=== PATIENT | male | born 1960 | race Two or more races ===

== ENCOUNTER 2019-07-02 07:59 | Inpatient (IN) | payer SELFPAY ==
[~2019-07-02] VITALS: Ht 182.9 cm; Wt 115.9 kg
[2019-07-02 10:03] LABS: Basophils # (auto) 0 uL; Basophils % (auto) 0.5 % (0.0-2.0); Eosinophils # (auto) 0 uL; Eosinophils % (auto) 0.2 % (0.0-7.0); Hematocrit 46.8 % (41.0-53.0); Lymphocytes # (auto) 1.1 uL; Mean Corpuscular Hemoglobin 29.1 pg (28.0-32.0); Mean Corpuscular Hgb Conc. 31.9 g/dL (32.0-36.0); Mean Corpuscular Volume 91.1 fL (80.0-100.0); Monocytes # (auto) 0.6 uL; Monocytes % (auto) 6.9 % (0.0-12.0); Neutrophils # (auto) 6.3 uL; Neutrophils % (auto) 78.4 % (37.0-80.0); Nucleated Red Blood Cells % 0.2 %; Platelet Count (auto) 269 10^3/uL (140-450); Red Blood Cells 5.14 10^6/uL (4.5-5.90); Red Cell Distribution Width 17.5 % (11.8-14.3); White Blood Cell 8.1 10^3/uL (4.4-10.8)
[2019-07-02 10:28] LABS: Calcium 8.9 mg/dL (8.5-10.1); Magnesium 2.2 mg/dL (1.6-2.6); Potassium 4.4 mmol/L (3.5-5.1)
[2019-07-02 10:37] LABS: BUN/Creatinine Ratio 21.9; Bilirubin, Total 0.8 mg/dL (0.2-1.0); Total Protein 7.3 g/dL (6.4-8.2)
[2019-07-02] MEDS ORDERED: SODIUM CHLORIDE 0.9% 1,000 ML IV ONE (11:23)
[2019-07-02] MEDS ORDERED: IPRATROPIUM BROM 0.5 MG/2.5ML INH SOL NEB ONE ×2 (11:30→12:45)
[2019-07-02] MEDS ORDERED: VANCOMYCIN 1GM/250ML 250 ML IV ONE (11:30)
[2019-07-02] MEDS ORDERED: ALBUTEROL SULF 2.5 MG/0.5ML(0.5%) NEB SOLN NEB ONE ×2 (11:30→12:45)
[2019-07-02 11:32] LABS: Urine Bacteria FEW /hpf (None Seen); Urine Blood TRACE /uL (Negative); Urine Hyaline Cast MANY /lpf (0 - 2); Urine Mucus FEW (None Seen); Urine Specific Gravity 1.037 (1.001-1.035); Urine WBC 4 /hpf (0 - 3)
[2019-07-02 11:41] LABS: Alcohol, Urine < 3.0 mg/dL (0-5); Amphetamine Screen, Urine POSITIVE (NEGATIVE); Barbiturate Scree,Urine NEGATIVE (NEGATIVE); Benzodiazephine Screen, Urine NEGATIVE (NEGATIVE); Cannabinoid Screen, Urine NEGATIVE (NEGATIVE); Cocaine Screen, Urine NEGATIVE (NEGATIVE); Opiate Scree,Urine NEGATIVE (NEGATIVE); Phencyclidine Screen, Urine NEGATIVE (NEGATIVE)
[2019-07-02] MEDS ORDERED: TEMAZEPAM 15 MG CAP PO PRN (16:15)
[2019-07-02] MEDS ORDERED: levoFLOXacin 500MG 100 ML IV ONE (16:15)
[2019-07-02] MEDS ORDERED: DEXTROSE (50%) 50ML SYRG IV PRN (16:15)
[2019-07-02] MEDS ORDERED: CARVEDILOL 3.125 MG TAB PO ONE (16:15)
[2019-07-02] MEDS ORDERED: LACTULOSE 20Gm/30ML SOLN PO PRN (16:15)
[2019-07-02] MEDS ORDERED: NITROGLYCERIN 0.4 MG SL TAB SL PRN (16:15)
[2019-07-02] MEDS ORDERED: OSELTAMIVIR 75 MG CAP PO ONE (16:15)
[2019-07-02] MEDS ORDERED: MORPHINE SULF INJ 2 MG/ML SYRINGE 1ML IV PRN (16:15)
[2019-07-02] MEDS ORDERED: ENALAPRIL MALEATE 2.5 MG TAB PO ONE (16:15)
[2019-07-02] MEDS ORDERED: PROMETHAZINE HCL 25 MG/ML 1ML IV PRN (16:15)
[2019-07-02] MEDS ORDERED: DOXYCYCLINE 100MG/250ML 250 ML IV SCH (16:15)
[2019-07-02] MEDS: ACCU-CHEK COMFORT CURVE STRIP VI SCH ×2 (18:07→22:56)
[2019-07-02] MEDS: IPRATROPIUM BROM 0.5 MG/2.5ML INH SOL NEB SCH (19:00)
[2019-07-02 19:30] VITALS: BP 127/86
[2019-07-02 20:00] VITALS: BP 110/49
--- NOTE | 2019-07-02 20:30 | NUR ---
Telemetry admit from ER CHARISSTAN admitted to Telemetry unit after SBAR received. Patient oriented to MEERA ALLEN, RN primary RN, unit, room, bed, and unit policies regarding patient care and visiting hours. Patient now on continuous telemetry monitoring, tele box # [id number] and telemetry reading on arrival to unit is [id number]. Patient placed on bedside oxygen, weighed by bedscale and encouraged to call if they need something. All questions and concerns addressed, patient verbalized understanding. Patient on 4L NC, patient complained of 10/10 will administer pain medication PRN.
[2019-07-02] MEDS: MORPHINE SULF INJ 2 MG/ML SYRINGE 1ML IV PRN (21:03)
[2019-07-02 22:00] VITALS: BP 127/69
[2019-07-02] MEDS ORDERED: CARVEDILOL 3.125 MG TAB PO SCH (22:00)
[2019-07-02] MEDS: SODIUM CHLOR 0.9% PF (SALINE LOCK) 10ML VIAL/SYR IV SCH (22:30)
[2019-07-02] MEDS: DOXYCYCLINE 100MG/250ML 250 ML IV SCH (22:55)
[2019-07-02] MEDS: CLINDAMYCIN 600MG IV 50 ML IV SCH (22:55)
[2019-07-02] MEDS: ATORVASTATIN 20 MG TAB PO SCH (22:56)
[2019-07-02] MEDS: traMADol HCL 50 MG TAB PO PRN (22:57)
--- NOTE | 2019-07-02 23:00 | NUR ---
Wound pictures taken and dressing applied.
[2019-07-02] MEDS: OSELTAMIVIR 75 MG CAP PO SCH (23:01)
[2019-07-02] MEDS: FUROSEMIDE 40 MG/4 ML VIAL IV SCH (23:01)
[2019-07-03] VITALS (7 sets, daily range): BP systolic 108–139; BP diastolic 75–104
[2019-07-03] MEDS: IPRATROPIUM BROM 0.5 MG/2.5ML INH SOL NEB SCH ×4 (00:36→19:00)
[2019-07-03] MEDS: ACCU-CHEK COMFORT CURVE STRIP VI SCH ×4 (05:39→21:55)
[2019-07-03] MEDS: CLINDAMYCIN 600MG IV 50 ML IV SCH ×3 (05:39→21:54)
[2019-07-03] MEDS: SODIUM CHLOR 0.9% PF (SALINE LOCK) 10ML VIAL/SYR IV SCH ×3 (06:00→22:50)
[2019-07-03 06:10] LABS: Potassium 4.2 mmol/L (3.5-5.1)
[2019-07-03 06:24] LABS: Albumin 2.5 g/dL (3.4-5.0); BUN/Creatinine Ratio 23.8; Bilirubin, Total 0.8 mg/dL (0.2-1.0); Calcium 8.3 mg/dL (8.5-10.1); Total Protein 6.3 g/dL (6.4-8.2)
--- NOTE | 2019-07-03 08:10 | NUR ---
PATIENT IV OUT. IV INTACT NO DISTRESS NOTED.
[2019-07-03 08:31] LABS: Hepatitis B Surface Antibody Negative
[2019-07-03] MEDS: ADENOSINE 77 MG in GIVE UN-DILUTED 0 ML IV STA (08:53)
[2019-07-03 09:10] LABS: Hepatitis A Total Antibody Negative
[2019-07-03 09:37] LABS: Hepatitis B Core Total AB Negative
[2019-07-03 09:38] LABS: Hepatitis B Surface Antigen Negative (Negative); Hepatitis C Antibody Negative (Negative)
--- NOTE | 2019-07-03 09:45 | NUR ---
PLACED IV X 2 RIGHT WRIST 22 G RIGHT FA 20G PATIENT TOLERATED WELL
[2019-07-03] MEDS: ENOXAPARIN SOD 40 MG/0.4 ML SYRINGE SC SCH (09:49)
[2019-07-03] MEDS: DOXYCYCLINE 100MG/250ML 250 ML IV SCH ×2 (09:50→21:55)
[2019-07-03] MEDS: FUROSEMIDE 40 MG/4 ML VIAL IV SCH ×2 (09:50→21:54)
[2019-07-03] MEDS: POTASSIUM CHL 20 Meq TABLET PO SCH (09:50)
[2019-07-03] MEDS: NITROGLYCERIN 0.2MG/HR TOPICAL PATCH TD SCH (09:51)
[2019-07-03] MEDS: ENALAPRIL MALEATE 2.5 MG TAB PO SCH (09:52)
[2019-07-03] MEDS: ASPirin 81 mg TAB PO SCH (09:52)
[2019-07-03] MEDS: OSELTAMIVIR 75 MG CAP PO SCH (09:54)
[2019-07-03] MEDS: levoFLOXacin 500MG 100 ML IV SCH (11:46)
--- NOTE | 2019-07-03 12:00 | NUR ---
WOUND CARE NOTE: IN TO SEE PATIENT AT THIS TIME PER WOUND CARE CONSULT REQUEST. PATIENT WAS NOTED UPON ADMIT TO HAVE MULTIPLE WOUNDS TO BLE. ALL WOUNDS PHOTOGRAPHED UPON ADMIT BY BEDSIDE NURSE FOR REFERENCE, AND AGAIN AT THIS TIME WITH MEASUREMENTS. PATIENT ADMITTED TO [facility] WITH DIAGNOSIS OF HEART FAILURE, BLE CELLULITIS. CURRENT CARISSA SCORE IS 23. PATIENT IS FULLY AMBULATORY, CAN SELF TURN/REPOSITION SELF. PATIENT STATES THAT HE HAS HAD CURRENT WOUNDS FOR AT LEAST 2 MONTHS. HE HAS HAD HIS FISSURES TO THE BILATERAL FEET/HEELS/ANKLES FOR MUCH LONGER THAN THAT. BILATERAL FEET AND LOWER LEGS ARE NOTED TO HAVE DARK RED ERYTHEMA, EDEMA. SKIN IS TAUT. CLEANSED ALL WOUNDS TO BILATERAL LEGS/FEET WITH WOUND CLEANSER, PATTED DRY WITH STERILE GAUZE. APPLIED THERAHONEY TO ALL OPEN WOUND BED STASIS ULCERS AND FISSURES. COVERED WITH ABD PADS, WRAPPED BOTH FEET/LEGS WITH KERLIX, STOCKINETTE. ALL WOUND STATS CAN BE FOUND WITHIN WOUND ASSESSMENT INTERVENTION, LINKED WITH THIS NOTE AND ALSO ON WOUND PHOTOS TAKEN AT THIS TIME. ADVISED PATIENT TO KEEP FEET/LEGS ELEVATED WHEN IN BED. PATIENT VERBALIZED UNDERSTANDING. RECOMMEND: EOD/PRN DRESSING CHANGES TO BLE WOUNDS, DIETARY CONSULT FOR MULTIPLE WOUNDS, SKIN/WOUND CARE PLAN, ELEVATION OF BLE WHEN IN BED, CONTINUED MONITORING BY WOUND CARE TEAM. Addendum: 07/03/19 at 1825 by Chasidy Rico RN Amended: Links added.
[2019-07-03] MEDS: traMADol HCL 50 MG TAB PO PRN (12:33)
[2019-07-03] MEDS: CARVEDILOL 12.5 MG TAB PO SCH ×2 (13:42→21:55)
[2019-07-03] MEDS ORDERED: cloNIDine HCL 0.1 MG TAB PO PRN (17:00)
--- NOTE | 2019-07-03 17:30 | NUR ---
PATIENT IV REMOVED ON RIGHT WRIST PATIENT STATES HE DOESNT KNOW HOW IT HAPPENED. IV INTACT NO DISTRESS NOTED.
[2019-07-03] MEDS: Glucerna Carbsteady SHAKE Vanilla 8oz PO SCH (18:00)
--- NOTE | 2019-07-03 19:30 | NUR ---
Opening Shift Note Assumed care of patient, awake and alert. No S/S of distress/SOB or pain. Instructed on POC and to call for assist PRN, will continue to monitor for changes Q1hr and PRN. Sister and friend at bedside.
[2019-07-03] MEDS: ATORVASTATIN 20 MG TAB PO SCH (21:55)
[2019-07-04] MEDS: IPRATROPIUM BROM 0.5 MG/2.5ML INH SOL NEB SCH ×5 (00:22→23:56)
--- NOTE | 2019-07-04 00:30 | NUR ---
Patient removed IV. Stated to be on the way when he needed to use the bathroom. Bed changed done.
--- NOTE | 2019-07-04 00:50 | NUR ---
IV insertion IV access obtained, via clean sterile technique by inserting 22 gauge catheter at after 2 attempts. IV secured properly. No trauma to site. Patient tolerated well.
--- NOTE | 2019-07-04 03:01 | NUR ---
Patient threatens to leave AMA due to "not allowed to make his own decisions". Patient asked for a drink of water and food to eat. Patient informed that he is in an NPO diet due to his second stress test in the morning. Patient upset and threaten to leave AMA in the morning. Advice patient to stayed for the night and speak to the doctor in the morning. Will continue to monitor.
--- NOTE | 2019-07-04 03:30 | NUR ---
Patient ate his own personal snacks knowing he needed to be NPO for his procedure tomorrow. He stated "I don't care what the doctor want or you, I want my and M&Ms or else I'm going AMA". Patient grabbed his snacks out of the side drawer and ate them. Will endorsed information to day shift nurse.
[2019-07-04 05:00] VITALS: BP 98/65
[2019-07-04 06:06] LABS: Basophils # (auto) 0 10 ^3/uL (0-0.2); Basophils % (auto) 0.4 % (0.0-2.0); Eosinophils # (auto) 0.1 10 ^3/uL (0-0.8); Eosinophils % (auto) 0.8 % (0.0-7.0); Hematocrit 42.7 % (41.0-53.0); Hemoglobin 13.7 g/dL (13.5-17.5); Lymphocytes # (auto) 0.7 10 ^3/uL (0.4-5.4); Lymphocytes % (auto) 11.3 % (10.0-50.0); Mean Corpuscular Hemoglobin 29.5 pg (28.0-32.0); Mean Corpuscular Hgb Conc. 32.1 g/dL (32.0-36.0); Mean Corpuscular Volume 91.9 fL (80.0-100.0); Monocytes # (auto) 0.5 10 ^3/uL (0-1.3); Monocytes % (auto) 8.2 % (0.0-12.0); Neutrophils # (auto) 4.9 10 ^3/uL (1.6-8.6); Neutrophils % (auto) 79.3 % (37.0-80.0); Platelet Count (auto) 226 10^3/uL (140-450); Red Blood Cells 4.65 10^6/uL (4.5-5.90); Red Cell Distribution Width 16.6 % (11.8-14.3); White Blood Cell 6.2 10^3/uL (4.4-10.8)
[2019-07-04] MEDS: ALBUTEROL SULF 2.5 MG/0.5ML(0.5%) NEB SOLN NEB PRN ×2 (06:15→11:39)
[2019-07-04] MEDS: CLINDAMYCIN 600MG IV 50 ML IV SCH ×3 (06:24→21:59)
[2019-07-04] MEDS: SODIUM CHLOR 0.9% PF (SALINE LOCK) 10ML VIAL/SYR IV SCH ×3 (06:24→21:59)
[2019-07-04 06:26] LABS: Calcium 8.4 mg/dL (8.5-10.1); Potassium 4.2 mmol/L (3.5-5.1)
[2019-07-04 06:33] LABS: BUN/Creatinine Ratio 29.8
[2019-07-04] MEDS: ACCU-CHEK COMFORT CURVE STRIP VI SCH ×4 (07:15→22:30)
--- NOTE | 2019-07-04 07:15 | NUR ---
Opening Shift Note Assumed care of patient, awake and alert. No S/S of distress/SOB or pain. Instructed on POC and to call for assist PRN,instructed to keep NPO for expected procedure,instructed on fluid restriction,dressings to lower extremities clean dry and intact.will continue to monitor for changes Q1hr and PRN. Sister and friend at bedside.
[2019-07-04] MEDS: Glucerna Carbsteady SHAKE Vanilla 8oz PO SCH ×3 (08:00→18:06)
[2019-07-04 08:52] VITALS: BP 102/50
[2019-07-04 09:00] VITALS: BP 99/72
[2019-07-04] MEDS: ADENOSINE 77 MG in GIVE UN-DILUTED 0 ML IV STA (09:03)
--- NOTE | 2019-07-04 09:30 | NUR ---
Patient down for stress test
[2019-07-04] MEDS: levoFLOXacin 500MG 100 ML IV SCH (11:15)
[2019-07-04] MEDS: FUROSEMIDE 40 MG/4 ML VIAL IV SCH ×2 (11:15→21:59)
[2019-07-04] MEDS: POTASSIUM CHL 20 Meq TABLET PO SCH (11:16)
[2019-07-04] MEDS: NITROGLYCERIN 0.2MG/HR TOPICAL PATCH TD SCH (11:16)
[2019-07-04] MEDS: ENOXAPARIN SOD 40 MG/0.4 ML SYRINGE SC SCH (11:17)
[2019-07-04] MEDS: CARVEDILOL 12.5 MG TAB PO SCH ×2 (11:17→22:00)
[2019-07-04] MEDS: ENALAPRIL MALEATE 2.5 MG TAB PO SCH (11:17)
[2019-07-04] MEDS: ASPirin 81 mg TAB PO SCH (11:19)
--- NOTE | 2019-07-04 12:55 | NUR ---
Family stated and noted a lump in patient back,assessed,lump soft to touch,denies any pain. informed and made aware no orders received.
[2019-07-04 13:00] VITALS: BP 113/73
--- NOTE | 2019-07-04 13:10 | NUR ---
[employer] life vest Rep.here to see patient, spoke and educated patient and family re plan of providing life vest.
--- NOTE | 2019-07-04 15:03 | NUR ---
Nutrition Assessment Notes Please refer to link for full assessment notes. Est energy needs: 6008-2060 kcals (14-18 kcal/kgBW) Est protein needs: 107-135 gms/day (1.2-1.5 gm/kgAdjBW) d/t current wounds Will continue to monitor and reassess prn. Addendum: 07/04/19 at [address] Amended: Links added.
[2019-07-04 17:00] VITALS: BP 99/80
--- NOTE | 2019-07-04 18:00 | NUR ---
[facility] NURSE PRACTITIONER HERE TO SEE PATIENT,EXPLAIN TO PATIENT RESULT OF STRESS TEST AND PLAN OF CARE,CARDIAC CATH IN A.M.
--- NOTE | 2019-07-04 18:30 | NUR ---
PATIENT ACCIDENTALLY PULLED IV HEP LOCK
--- NOTE | 2019-07-04 19:26 | NUR ---
REPORT GIVEN TO INCOMING NOC SHIFT RN, NO DISTRESS ,NO DISCOMFORT.STATUS UNCHANGED.
--- NOTE | 2019-07-04 19:30 | NUR ---
Opening Shift Note Assumed care of patient, awake and alert. No S/S of distress/SOB or pain. Instructed on POC and to call for assist PRN, will continue to monitor for changes Q1hr and PRN. Patient aware of LHC procedure tomorrow. Reminded patient that he needs to be NPO after 0000.
[2019-07-04] MEDS: ATORVASTATIN 20 MG TAB PO SCH (22:00)
[2019-07-04 22:19] VITALS: BP 154/85
[2019-07-05 05:31] VITALS: BP 130/95
[2019-07-05] MEDS: ACCU-CHEK COMFORT CURVE STRIP VI SCH ×4 (05:37→22:35)
[2019-07-05] MEDS: CLINDAMYCIN 600MG IV 50 ML IV SCH ×3 (05:37→22:33)
[2019-07-05] MEDS: SODIUM CHLOR 0.9% PF (SALINE LOCK) 10ML VIAL/SYR IV SCH ×3 (05:37→22:33)
[2019-07-05] MEDS: ALBUTEROL SULF 2.5 MG/0.5ML(0.5%) NEB SOLN NEB PRN ×2 (06:28→19:11)
[2019-07-05] MEDS: IPRATROPIUM BROM 0.5 MG/2.5ML INH SOL NEB SCH ×3 (06:28→19:07)
[2019-07-05 07:01] LABS: INR 1.32 (0.9-1.15); Partial Thromboplastin Time 29.4 sec (23.64-32.05)
[2019-07-05 07:07] LABS: Calcium 8.4 mg/dL (8.5-10.1); Potassium 4.4 mmol/L (3.5-5.1)
[2019-07-05 07:12] LABS: Basophils # (auto) 0 10 ^3/uL (0-0.2); Basophils % (auto) 0.2 % (0.0-2.0); Eosinophils # (auto) 0 10 ^3/uL (0-0.8); Eosinophils % (auto) 0.7 % (0.0-7.0); Hematocrit 43.5 % (41.0-53.0); Hemoglobin 14.1 g/dL (13.5-17.5); Lymphocytes # (auto) 0.9 10 ^3/uL (0.4-5.4); Lymphocytes % (auto) 15.1 % (10.0-50.0); Mean Corpuscular Hemoglobin 29.5 pg (28.0-32.0); Mean Corpuscular Hgb Conc. 32.4 g/dL (32.0-36.0); Monocytes # (auto) 0.4 10 ^3/uL (0-1.3); Monocytes % (auto) 7.2 % (0.0-12.0); Neutrophils # (auto) 4.7 10 ^3/uL (1.6-8.6); Neutrophils % (auto) 76.8 % (37.0-80.0); Nucleated Red Blood Cells % 0.1 %; Platelet Count (auto) 214 10^3/uL (140-450); Red Blood Cells 4.78 10^6/uL (4.5-5.90); Red Cell Distribution Width 16.8 % (11.8-14.3); White Blood Cell 6.1 10^3/uL (4.4-10.8)
[2019-07-05 07:15] LABS: Albumin 2.6 g/dL (3.4-5.0); BUN/Creatinine Ratio 33.3; Bilirubin, Total 0.6 mg/dL (0.2-1.0); Total Protein 6.5 g/dL (6.4-8.2)
--- NOTE | 2019-07-05 07:20 | NUR ---
Opening Shift Note Assumed care of patient, awake and alert. No S/S of distress/SOB or pain. Instructed on POC,not to eat or drink for Garment Cutter procedure,instructed on fluid restriction of 1200/24 hours,dressings to lower extremities clean dry and intact.will continue to monitor for changes Q1hr and PRN.patient reminded instructed to call for assistance,patient verbalized understanding.
[2019-07-05] MEDS: Glucerna Carbsteady SHAKE Vanilla 8oz PO SCH ×3 (08:00→17:38)
--- NOTE | 2019-07-05 08:25 | NUR ---
Patient found out eating breakfast,explain to patient that instruction regarding NO eating and drinking has been reinforced many times,patient stated breakfast was given to him so he ate it,instructed patient no further food or water to take for procedure,[employer]ODUCT DEVELOPMENT MANAGER instructed,patient verbalized understanding.
--- NOTE | 2019-07-05 08:30 | NUR ---
Called Song And Dance Performer spoke to Jennifer,informed patient ate breakfast.
[2019-07-05 09:00] VITALS: BP 127/91
[2019-07-05] MEDS: ENOXAPARIN SOD 40 MG/0.4 ML SYRINGE SC SCH (10:00)
[2019-07-05] MEDS: FUROSEMIDE 40 MG/4 ML VIAL IV SCH ×2 (10:47→22:33)
[2019-07-05] MEDS: levoFLOXacin 500MG 100 ML IV SCH (10:47)
[2019-07-05] MEDS: ENALAPRIL MALEATE 2.5 MG TAB PO SCH (10:48)
[2019-07-05] MEDS: POTASSIUM CHL 20 Meq TABLET PO SCH (10:48)
[2019-07-05] MEDS: NITROGLYCERIN 0.2MG/HR TOPICAL PATCH TD SCH (10:49)
[2019-07-05] MEDS: CARVEDILOL 12.5 MG TAB PO SCH ×2 (10:51→22:34)
--- NOTE | 2019-07-05 11:15 | NUR ---
TO MANAGER HOSPITALITY HOLDING ROOM VIA BED FOR LEFT HEART CATH,REPORT GIVEN TO LENORE MARTINES
[2019-07-05] MEDS ORDERED: LIDOCAINE 2%HCL (LOCAL ANESTH.) INJ 20ML MDV ONE (11:40)
[2019-07-05] MEDS ORDERED: IODIXANOL 320MG/ML 100ML BTL IV ONE (11:40)
[2019-07-05] MEDS ORDERED: ANGIOMAX 250 MG VIAL IV ONE (11:42)
[2019-07-05] MEDS ORDERED: fentaNYL CITRATE 100 MCG/2 ML VL ONE (11:42)
[2019-07-05] MEDS ORDERED: VERAPAMIL 2.5MG/ML INJ 2ML VIAL IV ONE (11:42)
[2019-07-05] MEDS ORDERED: MIDAZOLAM HCL 1MG/1ML-2 ML VIAL ONE (11:42)
[2019-07-05] MEDS ORDERED: HEPARIN SODIUM (PORCINE) 5000 UNITS/ML 1ML VIAL ONE (11:43)
[2019-07-05] MEDS ORDERED: SODIUM CHL 0.9% 0 ML ONE (11:43)
[2019-07-05 13:00] VITALS: BP 114/78
--- NOTE | 2019-07-05 13:25 | NUR ---
RECEIVED PATIENT FROM PHOTOGRAPHIC SPECIALIST S/P LEFT HEART CATH ACCOMPANIED BY LENORE MARTINES,PATIENT DROWSY BUT AROUSABLE,TR BAND TO RIGHT WRIST IN PLACE.NO BLEEDING,NO C/O PAIN OR NUMBNESS.
--- NOTE | 2019-07-05 13:26 | NUR ---
VITAL SIGNS TAKEN BP 121/78,HR 77,TEMP: 98.9,RR 22,HR 100
--- NOTE | 2019-07-05 13:30 | NUR ---
2 CC AIR DEFLATED FROM TR BAND USING TR BAND INFLATOR SYRINGE. WILL DEFLATE Q 15 MINUTES ORDERED
--- NOTE | 2019-07-05 14:45 | NUR ---
TR BAND COMPLETELY DEFLATED,TR BAND REMOVED,DRESSING APPLIED BY NISSA MARTINES,NO BLEEDING NOTED.
--- NOTE | 2019-07-05 15:42 | NUR ---
FAMILY AT BEDSIDE VISITING
[2019-07-05 17:00] VITALS: BP 136/86
[2019-07-05] MEDS: ASPirin 81 mg TAB PO SCH (17:36)
--- NOTE | 2019-07-05 18:47 | NUR ---
NO C/O CHEST PAIN NO DISCOMFORT.
--- NOTE | 2019-07-05 19:35 | NUR ---
Opening Shift Note Report received from day shift RN. Assumed care of patient, awake and A&O x4. No S/S of distress/SOB noted and patient denies pain. Instructed on POC. Reminded patient of fluid restriction of 1200mls /24 hours. Dressings to lower extremities C/D/I. Bed locked and left in the lowest position with side rails up x2 and call light left within reach. Will continue to monitor for changes Q1hr and PRN.
[2019-07-05 21:56] VITALS: BP 96/69
--- NOTE | 2019-07-05 22:00 | NUR ---
Wound care done per MD's orders. Patient tolerated well.
[2019-07-05] MEDS: ATORVASTATIN 20 MG TAB PO SCH (22:34)
[2019-07-05] MEDS: DAKINS HALF STR 0.25% (NaHypochlorite) 473 ML TOPICAL SOL TOP SCH (22:35)
[2019-07-05 23:04] VITALS: BP 156/84
[2019-07-06] MEDS: ALBUTEROL SULF 2.5 MG/0.5ML(0.5%) NEB SOLN NEB PRN ×4 (00:27→18:57)
[2019-07-06] MEDS: IPRATROPIUM BROM 0.5 MG/2.5ML INH SOL NEB SCH ×4 (00:27→18:57)
[2019-07-06 04:45] VITALS: BP 109/68
[2019-07-06 05:36] LABS: Basophils # (auto) 0 10 ^3/uL (0-0.2); Basophils % (auto) 0.6 % (0.0-2.0); Eosinophils # (auto) 0 10 ^3/uL (0-0.8); Eosinophils % (auto) 0.7 % (0.0-7.0); Hematocrit 42.4 % (41.0-53.0); Hemoglobin 13.8 g/dL (13.5-17.5); Lymphocytes # (auto) 0.8 10 ^3/uL (0.4-5.4); Lymphocytes % (auto) 15.1 % (10.0-50.0); Mean Corpuscular Hemoglobin 29.8 pg (28.0-32.0); Mean Corpuscular Hgb Conc. 32.6 g/dL (32.0-36.0); Mean Corpuscular Volume 91.4 fL (80.0-100.0); Monocytes # (auto) 0.4 10 ^3/uL (0-1.3); Neutrophils # (auto) 4.2 10 ^3/uL (1.6-8.6); Neutrophils % (auto) 75.6 % (37.0-80.0); Nucleated Red Blood Cells % 0.1 %; Platelet Count (auto) 195 10^3/uL (140-450); Red Blood Cells 4.64 10^6/uL (4.5-5.90); Red Cell Distribution Width 17.4 % (11.8-14.3); White Blood Cell 5.6 10^3/uL (4.4-10.8)
[2019-07-06 05:53] LABS: Calcium 8.4 mg/dL (8.5-10.1); Potassium 4.4 mmol/L (3.5-5.1)
[2019-07-06 05:58] LABS: Albumin 2.6 g/dL (3.4-5.0); BUN/Creatinine Ratio 37.9; Bilirubin, Total 0.6 mg/dL (0.2-1.0); Total Protein 6.2 g/dL (6.4-8.2)
--- NOTE | 2019-07-06 06:00 | NUR ---
PATIENT URINATED ON THE FLOOR TWICE DURING SHIFT. EDUCATED PATIENT ABOUT STRICT I&O'S AND THE NEED USE A URINAL TO MEASURE HIS OUTPUT. PATIENT VERBALIZED UNDERSTANDING.
[2019-07-06] MEDS: CLINDAMYCIN 600MG IV 50 ML IV SCH (06:19)
[2019-07-06] MEDS: ACCU-CHEK COMFORT CURVE STRIP VI SCH ×4 (06:21→21:41)
[2019-07-06] MEDS: SODIUM CHLOR 0.9% PF (SALINE LOCK) 10ML VIAL/SYR IV SCH ×3 (06:21→21:24)
--- NOTE | 2019-07-06 07:30 | NUR ---
Opening Shift Note Assumed care of patient, awake and alert. No S/S of distress/SOB or pain. For safety, patients bed is locked, in the lowest position, with 2 side rails up and the call light with in reach. Instructed on POC and to call for assist PRN, will continue to monitor for any changes in condition.
[2019-07-06 08:00] VITALS: BP 114/50
[2019-07-06] MEDS: Glucerna Carbsteady SHAKE Vanilla 8oz PO SCH ×3 (08:00→18:28)
[2019-07-06 09:00] VITALS: BP 114/50
[2019-07-06] MEDS ORDERED: cefTRIAXone 1GM/50ML D5W 50 ML IV ONE (09:30)
[2019-07-06] MEDS: NITROGLYCERIN 0.2MG/HR TOPICAL PATCH TD SCH (10:00)
[2019-07-06] MEDS: ENALAPRIL MALEATE 2.5 MG TAB PO SCH (10:00)
[2019-07-06] MEDS: CARVEDILOL 12.5 MG TAB PO SCH ×2 (10:08→21:23)
[2019-07-06] MEDS: POTASSIUM CHL 20 Meq TABLET PO SCH (10:08)
[2019-07-06] MEDS: ASPirin 81 mg TAB PO SCH (10:09)
[2019-07-06] MEDS: ENOXAPARIN SOD 40 MG/0.4 ML SYRINGE SC SCH (10:09)
[2019-07-06] MEDS: FUROSEMIDE 40 MG/4 ML VIAL IV SCH ×2 (10:10→21:22)
[2019-07-06] MEDS ORDERED: CIPROFLOXACIN HCL 500 MG TAB PO ONE (10:30)
[2019-07-06] MEDS ORDERED: AMOXICILLIN/CLAVUL 875 MG TAB PO ONE (10:30)
[2019-07-06] MEDS: DAKINS HALF STR 0.25% (NaHypochlorite) 473 ML TOPICAL SOL TOP SCH ×2 (10:40→21:41)
--- NOTE | 2019-07-06 10:49 | NUR ---
Kar at bedside regarding life vest to speak to patient and his sister Leilani regarding insurance and how to obtain the life vest. Kar and Leilani are calling the corporate for the [employer] life vest to see how to obtain it through the patient assistance program
[2019-07-06 13:00] VITALS: BP 124/80
--- NOTE | 2019-07-06 13:59 | NUR ---
IV insertion IV access obtained, via clean sterile technique by inserting 20 gauge catheter to the Left forearm after one attempt. IV secured properly. No trauma to site. Patient tolerated well. Removed IV to the left wrist, patient tolerated well.
[2019-07-06] MEDS ORDERED: AMOXICILLIN/CLAVULAN 500 MG TAB PO SCH (14:00)
--- NOTE | 2019-07-06 15:09 | NUR ---
Patient back from nuclear medicine for VQ scan
[2019-07-06] MEDS: MORPHINE SULF INJ 2 MG/ML SYRINGE 1ML IV PRN ×2 (16:15→22:10)
[2019-07-06 16:33] VITALS: BP 107/68
--- NOTE | 2019-07-06 16:46 | NUR ---
assessment Patient is a 58 year old male who is sleeping. Prior to admission per patients sister Leilani who was at bedside patient lived home alone and was independent. Per Leilani patient will return home with her or family friends. Patient has no insurance. Vivek sharma will reach out to Leilani in the morning. I informed Leilani patients post discharge needs to be determined prior to discharge. Leilani verbalized understanding. Addendum: 07/06/19 at 1653 by Stephanie MENDEZ Amended: Links added.
[2019-07-06] MEDS: AMOXICILLIN/CLAVUL 875 MG TAB PO SCH (21:23)
[2019-07-06] MEDS: CIPROFLOXACIN HCL 500 MG TAB PO SCH (21:23)
[2019-07-06] MEDS: ATORVASTATIN 20 MG TAB PO SCH (21:24)
--- NOTE | 2019-07-06 22:00 | NUR ---
DRESSING DONE IN BOTH LEGS WITH [employer] DRIED WITH GAUZE AND APPLIED TERAHONEY, COVERED WITH DRY GAUZE WRAPPED WITH KERLIX.
--- NOTE | 2019-07-06 22:10 | NUR ---
Given morphine 2mg.i.v.p. for pain level 10/10 after the dressing of both legs.
[2019-07-06 22:17] VITALS: BP 118/94
--- NOTE | 2019-07-06 22:40 | NUR ---
Seen asleep no more pain.
[2019-07-07] VITALS (7 sets, daily range): BP systolic 99–160; BP diastolic 78–113
[2019-07-07] MEDS: IPRATROPIUM BROM 0.5 MG/2.5ML INH SOL NEB SCH ×4 (00:22→18:45)
[2019-07-07] MEDS: ALBUTEROL SULF 2.5 MG/0.5ML(0.5%) NEB SOLN NEB PRN (00:22)
[2019-07-07 04:11] LABS: Urine Bacteria NONE SEEN /hpf (None Seen); Urine Blood Negative /uL (Negative); Urine Hyaline Cast FEW /lpf (0 - 2); Urine Mucus FEW (None Seen); Urine Specific Gravity 1.015 (1.001-1.035); Urine WBC <1 /hpf (0 - 3)
[2019-07-07 04:39] LABS: Protein, Urine 19.5 mg/dL (0.0-11.9)
[2019-07-07] MEDS: SODIUM CHLOR 0.9% PF (SALINE LOCK) 10ML VIAL/SYR IV SCH ×3 (06:28→23:00)
[2019-07-07] MEDS: ACCU-CHEK COMFORT CURVE STRIP VI SCH ×4 (06:29→22:00)
--- NOTE | 2019-07-07 06:30 | NUR ---
Today she responded to verbal stimuli, she knows the president, and she knows she is in the hospital. Addendum: 07/07/19 at [address] RN Wrong patient notes.
--- NOTE | 2019-07-07 07:26 | NUR ---
Care report given to aNomie Franklin,
[2019-07-07] MEDS: Glucerna Carbsteady SHAKE Vanilla 8oz PO SCH ×3 (08:00→18:49)
[2019-07-07] MEDS ORDERED: cefTRIAXone 1GM/50ML D5W 50 ML IV SCH (09:00)
[2019-07-07] MEDS: AMOXICILLIN/CLAVUL 875 MG TAB PO SCH ×2 (09:49→23:01)
[2019-07-07] MEDS: CIPROFLOXACIN HCL 500 MG TAB PO SCH ×2 (09:49→23:01)
[2019-07-07] MEDS: POTASSIUM CHL 20 Meq TABLET PO SCH (09:50)
[2019-07-07] MEDS: FUROSEMIDE 40 MG/4 ML VIAL IV SCH ×2 (09:50→23:00)
[2019-07-07] MEDS: ASPirin 81 mg TAB PO SCH (09:50)
[2019-07-07] MEDS: CARVEDILOL 12.5 MG TAB PO SCH ×2 (09:51→23:01)
[2019-07-07] MEDS: ENOXAPARIN SOD 40 MG/0.4 ML SYRINGE SC SCH (09:51)
[2019-07-07] MEDS: ENALAPRIL MALEATE 2.5 MG TAB PO SCH (09:52)
[2019-07-07] MEDS: NITROGLYCERIN 0.2MG/HR TOPICAL PATCH TD SCH (10:00)
--- NOTE | 2019-07-07 11:02 | NUR ---
SPOKE WITH PATIENTS SISTER JOVANNA REGARDING DISCHARGE. SHE STATED SHE HAS MADE ARRANGEMENTS FOR PATIENT TO BE DISCHARGED TO HIS FRIEND LORNE PRETTY'S HOUSE LOCATED AT [address] [place] [address]. LORNE'S PHONE NUMBER IS . JOVANNA STATED SHE IS GOING TO GO THERE TODAY AND CHECK THE ENVIRONMENT FOR SAFETY AND CLEANLINESS.
[2019-07-07] MEDS: DAKINS HALF STR 0.25% (NaHypochlorite) 473 ML TOPICAL SOL TOP SCH ×2 (11:12→22:00)
[2019-07-07] MEDS: MORPHINE SULF INJ 2 MG/ML SYRINGE 1ML IV PRN (11:12)
--- NOTE | 2019-07-07 14:17 | NUR ---
SPOKE WITH CAROLINA FROM [employer] HE STATED PATIENT WAS APPROVED FOR THE LIFE VEST WITH $250 DEDUCTIBLE. HE STATED HE WILL CALL JOVANNA AND NOTIFY HER HOW TO MAKE THE DEPOSIT WITH THE COMPANY.
--- NOTE | 2019-07-07 20:09 | NUR ---
[facility] [place] AT BEDSIDE.
--- NOTE | 2019-07-07 20:13 | NUR ---
TALKED TO DR. DEL RIO, HOSPITALIST. HOLD D/C UNTIL TOMORROW 07/08/19 AM FOR TRANSPORTATION PURPOSES. CROTCH BREAKER, EDDA LIANG.
[2019-07-07] MEDS: ATORVASTATIN 20 MG TAB PO SCH (23:01)
[2019-07-08] MEDS: IPRATROPIUM BROM 0.5 MG/2.5ML INH SOL NEB SCH ×2 (00:17→06:51)
--- NOTE | 2019-07-08 01:48 | NUR ---
wound pictures taken. wounds cleaned. ferreira wounds dressing. pt tolerated well. will continue to monitor.
[2019-07-08 03:01] VITALS: BP 91/67
--- NOTE | 2019-07-08 04:23 | NUR ---
pt had taken off his zoll vest and o2. placed them back on pt. will continue to monitor.
[2019-07-08 05:07] VITALS: BP 131/64
[2019-07-08] MEDS: SODIUM CHLOR 0.9% PF (SALINE LOCK) 10ML VIAL/SYR IV SCH (05:49)
[2019-07-08] MEDS: ACCU-CHEK COMFORT CURVE STRIP VI SCH (05:50)
[2019-07-08 06:13] LABS: Basophils # (auto) 0.1 10 ^3/uL (0-0.2); Basophils % (auto) 1.3 % (0.0-2.0); Eosinophils # (auto) 0.1 10 ^3/uL (0-0.8); Eosinophils % (auto) 1.8 % (0.0-7.0); Hematocrit 42.6 % (41.0-53.0); Hemoglobin 13.9 g/dL (13.5-17.5); Lymphocytes # (auto) 0.6 10 ^3/uL (0.4-5.4); Lymphocytes % (auto) 11.8 % (10.0-50.0); Mean Corpuscular Hemoglobin 29.5 pg (28.0-32.0); Mean Corpuscular Hgb Conc. 32.7 g/dL (32.0-36.0); Mean Corpuscular Volume 90.2 fL (80.0-100.0); Monocytes # (auto) 0.5 10 ^3/uL (0-1.3); Monocytes % (auto) 9.5 % (0.0-12.0); Neutrophils # (auto) 4.1 10 ^3/uL (1.6-8.6); Neutrophils % (auto) 75.6 % (37.0-80.0); Platelet Count (auto) 175 10^3/uL (140-450); Red Blood Cells 4.73 10^6/uL (4.5-5.90); White Blood Cell 5.4 10^3/uL (4.4-10.8)
[2019-07-08 06:34] LABS: Calcium 8.4 mg/dL (8.5-10.1); Potassium 4.3 mmol/L (3.5-5.1)
[2019-07-08] MEDS: ALBUTEROL SULF 2.5 MG/0.5ML(0.5%) NEB SOLN NEB PRN (06:50)
--- NOTE | 2019-07-08 07:30 | NUR ---
Opening Shift Note Report received from day shift RN. Assumed care of patient, awake, alert, and oriented. No S/S of distress/SOB noted and patient denies pain. Instructed on POC. Reminded patient of fluid restriction of 1200mls /24 hours. Bed locked and left in the lowest position with side rails up x2 and call light left within reach. Will continue to monitor for changes Q1hr and PRN. Addendum: 07/08/19 at 0841 by AMINA MIN RN RN Patient refusing tele box per night RN.
[2019-07-08] MEDS: Glucerna Carbsteady SHAKE Vanilla 8oz PO SCH (08:00)
--- NOTE | 2019-07-08 08:48 | NUR ---
TELE TELE BOX #[phone] RETURNED
[2019-07-08 09:00] VITALS: BP 130/91
[2019-07-08] MEDS: NITROGLYCERIN 0.2MG/HR TOPICAL PATCH TD SCH (10:00)
[2019-07-08] MEDS: ENOXAPARIN SOD 40 MG/0.4 ML SYRINGE SC SCH (10:00)
[2019-07-08] MEDS: POTASSIUM CHL 20 Meq TABLET PO SCH (10:06)
[2019-07-08] MEDS: CIPROFLOXACIN HCL 500 MG TAB PO SCH (10:06)
[2019-07-08] MEDS: ASPirin 81 mg TAB PO SCH (10:06)
[2019-07-08] MEDS: AMOXICILLIN/CLAVUL 875 MG TAB PO SCH (10:06)
[2019-07-08] MEDS: FUROSEMIDE 40 MG/4 ML VIAL IV SCH (10:07)
[2019-07-08] MEDS: ENALAPRIL MALEATE 2.5 MG TAB PO SCH (10:07)
[2019-07-08] MEDS: CARVEDILOL 12.5 MG TAB PO SCH (10:07)
[2019-07-08] MEDS: DAKINS HALF STR 0.25% (NaHypochlorite) 473 ML TOPICAL SOL TOP SCH (10:08)
--- NOTE | 2019-07-08 11:00 | NUR ---
Discharge instructions given as ordered. Encourage to follow up with PMD as instructed. All questions and concerns addressed. Patient verbalized understanding. IV removed with catheter intact, pressure dressing applied.Patient wearing [employer] life vest. Patient taken to vehicle via wheelchair with all personal belongings, accompanied by staff and family member. No distress noted at time of departure.
== END 2019-07-08 11:00 | disposition home or self-care (01) | DRG 190 ==
LOC: ER 07:59 → EDBD 07:59 → TELE 08:00 → TELE-WESTW 20:00
PROVIDERS: ADMIT Internal Medicine; ATTEND Internal Medicine Nephrology
PROC: 4A023N7 Measurement of Cardiac Sampling and Pressure, Left Heart, Percutaneous Approach (ICD-10-PCS; principal; 2019-07-05)
PROC: B211YZZ Fluoroscopy of Multiple Coronary Arteries using Other Contrast (ICD-10-PCS; 2019-07-05)
PROC: B215YZZ Fluoroscopy of Left Heart using Other Contrast (ICD-10-PCS; 2019-07-05)
DX: I21.4 Non-ST elevation (NSTEMI) myocardial infarction (principal); I50.43 Acute on chronic combined systolic (congestive) and diastolic (congestive) heart failure; L03.115 Cellulitis of right lower limb; I42.9 Cardiomyopathy, unspecified; L03.116 Cellulitis of left lower limb; L97.919 Non-pressure chronic ulcer of unspecified part of right lower leg with unspecified severity; I13.0 Hypertensive heart and chronic kidney disease with heart failure and stage 1 through stage 4 chronic kidney disease, or unspecified chronic kidney disease; L97.929 Non-pressure chronic ulcer of unspecified part of left lower leg with unspecified severity; N18.9 Chronic kidney disease, unspecified; I48.91 Unspecified atrial fibrillation; R00.0 Tachycardia, unspecified; Z53.9 Procedure and treatment not carried out, unspecified reason; F15.10 Other stimulant abuse, uncomplicated; E66.9 Obesity, unspecified; J44.9 Chronic obstructive pulmonary disease, unspecified; Z22.322 Carrier or suspected carrier of Methicillin resistant Staphylococcus aureus; Z82.49 Family history of ischemic heart disease and other diseases of the circulatory system; Z91.14 Patient's other noncompliance with medication regimen; Z83.3 Family history of diabetes mellitus
CPT/HCPCS: 36415; 71045; 76705; 78452; 78582; 80048; 80053; 80061; 80307; 81001; 82550; 82570; 82962; 83036; 83605; 83735; 83880; 84156; 84443; 84484; 85025; 85379; 85610; 85652; 85730; 86704; 86706; 86708; 86803; 86850; 86900; 86901; 87040; 87077; 87186; 87205; 87340; 87804; 93017; 93306; 93458; 93926; 93970; 94640; 96365; 96367; 99152; G0378; J0153; J0696; J1956; J2250; J3490; J7042; Q9967

== ENCOUNTER 2019-09-26 04:57 | Inpatient (IN) | payer MEDICAID ==
[~2019-09-26] VITALS: Ht 182.9 cm; Wt 101.3 kg
[2019-09-26] MEDS ORDERED: cloNIDine HCL 0.1 MG TAB PO ONE (05:45)
[2019-09-26 06:16] LABS: Urine Bacteria NONE SEEN /hpf (None Seen); Urine Blood Negative /uL (Negative); Urine Hyaline Cast FEW /lpf (0 - 2); Urine Specific Gravity 1.006 (1.001-1.035); Urine WBC 1 /hpf (0 - 3)
[2019-09-26] MEDS ORDERED: SODIUM CHLORIDE 0.9% 1,000 ML IV ONE ×2 (06:29)
[2019-09-26] MEDS ORDERED: CLINDAMYCIN 600MG IV 50 ML IV ONE (06:30)
[2019-09-26] MEDS ORDERED: FUROSEMIDE 40 MG/4 ML VIAL IV ONE (06:30)
[2019-09-26] MEDS ORDERED: cefTRIAXone 1GM/50ML D5W 50 ML IV ONE (06:30)
[2019-09-26 06:40] LABS: Basophils # (auto) 0.1 10 ^3/uL (0-0.2); Basophils % (auto) 0.9 % (0.0-2.0); Eosinophils # (auto) 0.1 10 ^3/uL (0-0.8); Eosinophils % (auto) 0.8 % (0.0-7.0); Hematocrit 45.9 % (41.0-53.0); Hemoglobin 15.1 g/dL (13.5-17.5); Lymphocytes # (auto) 0.9 10 ^3/uL (0.4-5.4); Lymphocytes % (auto) 9.7 % (10.0-50.0); Mean Corpuscular Hemoglobin 31.2 pg (28.0-32.0); Mean Corpuscular Hgb Conc. 32.9 g/dL (32.0-36.0); Mean Corpuscular Volume 94.7 fL (80.0-100.0); Monocytes # (auto) 0.7 10 ^3/uL (0-1.3); Neutrophils # (auto) 7.2 10 ^3/uL (1.6-8.6); Neutrophils % (auto) 80.6 % (37.0-80.0); Platelet Count (auto) 242 10^3/uL (140-450); Red Blood Cells 4.85 10^6/uL (4.5-5.90); Red Cell Distribution Width 19.3 % (11.8-14.3)
[2019-09-26 06:53] LABS: Albumin 3.1 g/dL (3.4-5.0); Calcium 8.1 mg/dL (8.5-10.1); INR 1.31 (0.9-1.15); Magnesium 2.1 mg/dL (1.6-2.6); Partial Thromboplastin Time 26.5 sec (23.64-32.05); Potassium 3.4 mmol/L (3.5-5.1)
[2019-09-26 06:58] LABS: Bilirubin, Total 1.5 mg/dL (0.2-1.0); Total Protein 7.4 g/dL (6.4-8.2)
[2019-09-26] MEDS ORDERED: LABETALOL HCL 5 MG/ML 4ML SYRINGE IV ONE (07:15)
[2019-09-26] MEDS ORDERED: ONDANSETRON HCL 4 MG/2 ML VIAL IV PRN (10:15)
[2019-09-26] MEDS ORDERED: ACETAMINOPHEN 500 MG TAB PO PRN (10:15)
[2019-09-26] MEDS ORDERED: HYDROcodone-ACET 5/325MG TAB PO PRN (10:15)
[2019-09-26] MEDS ORDERED: hydrALAZINE HCL 20 MG/ML VL IV PRN (10:15)
[2019-09-26] MEDS ORDERED: MORPHINE SULF INJ 2 MG/ML SYRINGE 1ML IV PRN ×2 (10:15)
[2019-09-26] MEDS ORDERED: NITROGLYCERIN 0.4 MG SL TAB SL PRN (10:15)
[2019-09-26 13:00] VITALS: BP 135/91
[2019-09-26] MEDS: CLINDAMYCIN 300MG IV 50 ML IV SCH ×2 (13:55→22:24)
[2019-09-26 16:37] VITALS: BP 137/88
[2019-09-26] MEDS: FUROSEMIDE 40 MG/4 ML VIAL IV SCH (18:23)
[2019-09-26 20:00] VITALS: BP 132/95
[2019-09-26 22:00] VITALS: BP 132/95
[2019-09-26] MEDS: ATORVASTATIN 20 MG TAB PO SCH (22:25)
[2019-09-26] MEDS: CARVEDILOL 3.125 MG TAB PO SCH (22:25)
[2019-09-27 05:00] VITALS: BP 125/92
[2019-09-27 05:50] LABS: Basophils # (auto) 0.1 10 ^3/uL (0-0.2); Basophils % (auto) 0.9 % (0.0-2.0); Eosinophils # (auto) 0.1 10 ^3/uL (0-0.8); Eosinophils % (auto) 1.6 % (0.0-7.0); Hematocrit 45.2 % (41.0-53.0); Hemoglobin 14.5 g/dL (13.5-17.5); Lymphocytes # (auto) 0.7 10 ^3/uL (0.4-5.4); Lymphocytes % (auto) 9.5 % (10.0-50.0); Mean Corpuscular Hemoglobin 30.8 pg (28.0-32.0); Mean Corpuscular Volume 96.2 fL (80.0-100.0); Monocytes # (auto) 0.8 10 ^3/uL (0-1.3); Monocytes % (auto) 10.2 % (0.0-12.0); Neutrophils % (auto) 77.8 % (37.0-80.0); Nucleated Red Blood Cells % 0.4 %; Platelet Count (auto) 225 10^3/uL (140-450); Red Cell Distribution Width 19.4 % (11.8-14.3); White Blood Cell 7.7 10^3/uL (4.4-10.8)
[2019-09-27] MEDS: FUROSEMIDE 40 MG/4 ML VIAL IV SCH ×2 (05:54→17:19)
[2019-09-27] MEDS: CLINDAMYCIN 300MG IV 50 ML IV SCH ×3 (05:54→21:48)
[2019-09-27 05:57] LABS: INR 1.23 (0.9-1.15); Partial Thromboplastin Time 26.2 sec (23.64-32.05)
[2019-09-27 06:08] LABS: Potassium 3.8 mmol/L (3.5-5.1)
[2019-09-27 06:23] LABS: Albumin 2.7 g/dL (3.4-5.0); BUN/Creatinine Ratio 26.1; Bilirubin, Total 1.1 mg/dL (0.2-1.0); Total Protein 6.7 g/dL (6.4-8.2)
[2019-09-27] MEDS: FAMOTIDINE 20 MG TAB PO SCH (09:23)
[2019-09-27] MEDS: ASPirin-EC 81 mg tab PO SCH (09:24)
[2019-09-27] MEDS: CARVEDILOL 3.125 MG TAB PO SCH ×2 (09:24→21:49)
[2019-09-27] MEDS: LISINOPRIL 10 MG TAB PO SCH (09:24)
[2019-09-27] MEDS: FLORASTOR (S. BOULARDII) 250 MG CAP PO SCH (09:25)
[2019-09-27 15:22] LABS: Alcohol, Urine < 3.0 mg/dL (0-10); Amphetamine Screen, Urine POSITIVE (NEGATIVE); Barbiturate Scree,Urine NEGATIVE (NEGATIVE); Benzodiazephine Screen, Urine NEGATIVE (NEGATIVE); Cannabinoid Screen, Urine NEGATIVE (NEGATIVE); Cocaine Screen, Urine NEGATIVE (NEGATIVE); Opiate Scree,Urine NEGATIVE (NEGATIVE); Phencyclidine Screen, Urine NEGATIVE (NEGATIVE)
[2019-09-27 17:00] VITALS: BP 129/69
[2019-09-27] MEDS ORDERED: DIGOXIN 0.25 MG TAB PO ONE (17:00)
[2019-09-27] MEDS: ATORVASTATIN 20 MG TAB PO SCH (21:48)
[2019-09-27 22:00] VITALS: BP 148/93
[2019-09-28] VITALS (7 sets, daily range): BP systolic 125–146; BP diastolic 85–104
[2019-09-28] MEDS: CLINDAMYCIN 300MG IV 50 ML IV SCH ×3 (05:15→22:25)
[2019-09-28] MEDS: FUROSEMIDE 40 MG/4 ML VIAL IV SCH ×2 (05:18→17:33)
[2019-09-28 05:34] LABS: Basophils # (auto) 0.1 10 ^3/uL (0-0.2); Basophils % (auto) 1.2 % (0.0-2.0); Eosinophils # (auto) 0.2 10 ^3/uL (0-0.8); Eosinophils % (auto) 2.1 % (0.0-7.0); Hematocrit 46.6 % (41.0-53.0); Hemoglobin 15.3 g/dL (13.5-17.5); Lymphocytes % (auto) 13.6 % (10.0-50.0); Mean Corpuscular Hemoglobin 31.2 pg (28.0-32.0); Mean Corpuscular Hgb Conc. 32.8 g/dL (32.0-36.0); Mean Corpuscular Volume 95.2 fL (80.0-100.0); Monocytes # (auto) 0.6 10 ^3/uL (0-1.3); Monocytes % (auto) 9.1 % (0.0-12.0); Neutrophils # (auto) 5.3 10 ^3/uL (1.6-8.6); Nucleated Red Blood Cells % 0.1 %; Platelet Count (auto) 211 10^3/uL (140-450); Red Cell Distribution Width 19.2 % (11.8-14.3); White Blood Cell 7.1 10^3/uL (4.4-10.8)
[2019-09-28 05:58] LABS: Calcium 8.1 mg/dL (8.5-10.1); Potassium 3.7 mmol/L (3.5-5.1)
[2019-09-28 06:04] LABS: Albumin 2.8 g/dL (3.4-5.0); BUN/Creatinine Ratio 31.6; Bilirubin, Total 1.6 mg/dL (0.2-1.0)
[2019-09-28] MEDS: CARVEDILOL 3.125 MG TAB PO SCH ×2 (09:27→22:27)
[2019-09-28] MEDS: ASPirin-EC 81 mg tab PO SCH (09:27)
[2019-09-28] MEDS: FAMOTIDINE 20 MG TAB PO SCH (09:27)
[2019-09-28] MEDS: DIGOXIN 0.125 MG TAB PO SCH (09:27)
[2019-09-28] MEDS: LISINOPRIL 10 MG TAB PO SCH (09:28)
[2019-09-28] MEDS: FLORASTOR (S. BOULARDII) 250 MG CAP PO SCH (09:28)
[2019-09-28] MEDS ORDERED: POTASSIUM CHL 10 Meq TABLET PO ONE (13:15)
[2019-09-28 14:06] LABS: Hepatitis B Surface Antibody Negative
[2019-09-28 14:45] LABS: Hepatitis A Total Antibody Negative
[2019-09-28 16:49] LABS: Hepatitis B Core Total AB Negative; Hepatitis B Surface Antigen Negative (Negative); Hepatitis C Antibody Negative (Negative)
[2019-09-28] MEDS: ATORVASTATIN 20 MG TAB PO SCH (22:25)
[2019-09-28] MEDS: POTASSIUM CHL 10 Meq TABLET PO SCH (22:26)
[2019-09-29 05:00] VITALS: BP 108/68
[2019-09-29 05:59] LABS: Potassium 3.8 mmol/L (3.5-5.1)
[2019-09-29] MEDS: FUROSEMIDE 40 MG/4 ML VIAL IV SCH ×2 (06:04→17:52)
[2019-09-29] MEDS: CLINDAMYCIN 300MG IV 50 ML IV SCH ×3 (06:04→21:44)
[2019-09-29 06:09] LABS: Albumin 2.5 g/dL (3.4-5.0); Bilirubin, Total 1.1 mg/dL (0.2-1.0); Calcium 7.6 mg/dL (8.5-10.1); Total Protein 6.1 g/dL (6.4-8.2)
[2019-09-29 09:13] VITALS: BP 137/77
[2019-09-29] MEDS: ASPirin-EC 81 mg tab PO SCH (10:10)
[2019-09-29] MEDS: CARVEDILOL 3.125 MG TAB PO SCH ×2 (10:10→21:44)
[2019-09-29] MEDS: FAMOTIDINE 20 MG TAB PO SCH (10:11)
[2019-09-29] MEDS: LISINOPRIL 10 MG TAB PO SCH (10:11)
[2019-09-29] MEDS: DIGOXIN 0.125 MG TAB PO SCH (10:11)
[2019-09-29] MEDS: POTASSIUM CHL 10 Meq TABLET PO SCH ×2 (10:16→21:43)
[2019-09-29] MEDS: FLORASTOR (S. BOULARDII) 250 MG CAP PO SCH (10:22)
[2019-09-29 13:13] VITALS: BP 150/91
[2019-09-29 17:00] VITALS: BP 137/95
[2019-09-29] MEDS: ATORVASTATIN 20 MG TAB PO SCH (21:43)
[2019-09-29 22:00] VITALS: BP 125/86
[2019-09-30 05:27] LABS: Calcium 7.9 mg/dL (8.5-10.1); Potassium 4.1 mmol/L (3.5-5.1)
[2019-09-30 05:30] VITALS: BP 139/88
[2019-09-30 05:30] LABS: Albumin 2.6 g/dL (3.4-5.0)
[2019-09-30 05:33] LABS: Bilirubin, Total 1.1 mg/dL (0.2-1.0); Total Protein 6.6 g/dL (6.4-8.2)
[2019-09-30] MEDS: CLINDAMYCIN 300MG IV 50 ML IV SCH ×3 (05:33→22:16)
[2019-09-30] MEDS: FUROSEMIDE 40 MG/4 ML VIAL IV SCH ×2 (05:34→18:27)
[2019-09-30 09:14] VITALS: BP 129/73
[2019-09-30] MEDS: POTASSIUM CHL 10 Meq TABLET PO SCH ×2 (10:41→22:15)
[2019-09-30] MEDS: ASPirin-EC 81 mg tab PO SCH (10:41)
[2019-09-30] MEDS: DIGOXIN 0.125 MG TAB PO SCH (10:41)
[2019-09-30] MEDS: LISINOPRIL 10 MG TAB PO SCH (10:42)
[2019-09-30] MEDS: FLORASTOR (S. BOULARDII) 250 MG CAP PO SCH (10:42)
[2019-09-30] MEDS: CARVEDILOL 3.125 MG TAB PO SCH ×2 (10:42→22:16)
[2019-09-30] MEDS: ENOXAPARIN SOD 30 MG/0.3 ML SYRINGE SC SCH (10:43)
[2019-09-30] MEDS: FAMOTIDINE 20 MG TAB PO SCH (10:43)
[2019-09-30 13:00] VITALS: BP 122/74
[2019-09-30] MEDS: Ensure HIGH Protein Chocolate 8oz Bottle PO SCH ×2 (13:46→18:28)
[2019-09-30 17:23] VITALS: BP 123/67
[2019-09-30 22:00] VITALS: BP 138/100
[2019-09-30] MEDS: ATORVASTATIN 20 MG TAB PO SCH (22:16)
[2019-10-01 05:00] VITALS: BP 157/114
[2019-10-01] MEDS: CLINDAMYCIN 300MG IV 50 ML IV SCH ×3 (06:31→21:57)
[2019-10-01] MEDS: FUROSEMIDE 40 MG/4 ML VIAL IV SCH ×2 (06:31→18:14)
[2019-10-01] MEDS: Ensure HIGH Protein Chocolate 8oz Bottle PO SCH ×3 (08:21→18:14)
[2019-10-01 09:00] VITALS: BP 105/60
[2019-10-01] MEDS: DIGOXIN 0.125 MG TAB PO SCH (09:46)
[2019-10-01] MEDS: POTASSIUM CHL 10 Meq TABLET PO SCH ×2 (09:47→21:59)
[2019-10-01] MEDS: FAMOTIDINE 20 MG TAB PO SCH (09:47)
[2019-10-01] MEDS: FLORASTOR (S. BOULARDII) 250 MG CAP PO SCH (09:47)
[2019-10-01] MEDS: CARVEDILOL 3.125 MG TAB PO SCH ×2 (09:48→21:58)
[2019-10-01] MEDS: LISINOPRIL 10 MG TAB PO SCH (09:48)
[2019-10-01] MEDS: ASPirin-EC 81 mg tab PO SCH (09:48)
[2019-10-01] MEDS: ENOXAPARIN SOD 30 MG/0.3 ML SYRINGE SC SCH (09:49)
[2019-10-01 10:21] LABS: Basophils # (auto) 0.1 10 ^3/uL (0-0.2); Basophils % (auto) 1.4 % (0.0-2.0); Eosinophils # (auto) 0.2 10 ^3/uL (0-0.8); Eosinophils % (auto) 2.7 % (0.0-7.0); Hematocrit 41.9 % (41.0-53.0); Hemoglobin 13.9 g/dL (13.5-17.5); Lymphocytes % (auto) 16.1 % (10.0-50.0); Mean Corpuscular Hemoglobin 31.3 pg (28.0-32.0); Mean Corpuscular Hgb Conc. 33.3 g/dL (32.0-36.0); Mean Corpuscular Volume 94.2 fL (80.0-100.0); Monocytes # (auto) 0.6 10 ^3/uL (0-1.3); Monocytes % (auto) 9.6 % (0.0-12.0); Neutrophils # (auto) 4.4 10 ^3/uL (1.6-8.6); Neutrophils % (auto) 70.2 % (37.0-80.0); Nucleated Red Blood Cells % 0.1 %; Platelet Count (auto) 176 10^3/uL (140-450); Red Blood Cells 4.45 10^6/uL (4.5-5.90); Red Cell Distribution Width 18.9 % (11.8-14.3); White Blood Cell 6.3 10^3/uL (4.4-10.8)
[2019-10-01 10:42] LABS: BUN/Creatinine Ratio 32.9; Calcium 8.5 mg/dL (8.5-10.1); Potassium 3.8 mmol/L (3.5-5.1)
[2019-10-01 14:40] VITALS: BP 106/68
[2019-10-01 17:00] VITALS: BP 112/73
[2019-10-01] MEDS: ATORVASTATIN 20 MG TAB PO SCH (21:58)
[2019-10-01 22:00] VITALS: BP 146/83
[2019-10-02 05:00] VITALS: BP 135/97
[2019-10-02 05:31] LABS: Basophils # (auto) 0.1 10 ^3/uL (0-0.2); Basophils % (auto) 1.4 % (0.0-2.0); Eosinophils # (auto) 0.2 10 ^3/uL (0-0.8); Eosinophils % (auto) 3.3 % (0.0-7.0); Hematocrit 40.8 % (41.0-53.0); Hemoglobin 13.4 g/dL (13.5-17.5); Lymphocytes # (auto) 1.1 10 ^3/uL (0.4-5.4); Lymphocytes % (auto) 18.8 % (10.0-50.0); Mean Corpuscular Hemoglobin 30.9 pg (28.0-32.0); Mean Corpuscular Hgb Conc. 32.9 g/dL (32.0-36.0); Monocytes # (auto) 0.6 10 ^3/uL (0-1.3); Monocytes % (auto) 11.1 % (0.0-12.0); Neutrophils # (auto) 3.8 10 ^3/uL (1.6-8.6); Neutrophils % (auto) 65.4 % (37.0-80.0); Platelet Count (auto) 176 10^3/uL (140-450); Red Blood Cells 4.34 10^6/uL (4.5-5.90); Red Cell Distribution Width 18.4 % (11.8-14.3); White Blood Cell 5.8 10^3/uL (4.4-10.8)
[2019-10-02 05:56] LABS: Calcium 8.4 mg/dL (8.5-10.1); Potassium 4.4 mmol/L (3.5-5.1)
[2019-10-02 05:58] LABS: BUN/Creatinine Ratio 33.3
[2019-10-02] MEDS: FUROSEMIDE 40 MG/4 ML VIAL IV SCH (06:30)
[2019-10-02] MEDS: CLINDAMYCIN 300MG IV 50 ML IV SCH (06:31)
[2019-10-02 08:00] VITALS: BP 128/91
[2019-10-02] MEDS: Ensure HIGH Protein Chocolate 8oz Bottle PO SCH ×2 (08:00→12:00)
[2019-10-02] MEDS: ENOXAPARIN SOD 30 MG/0.3 ML SYRINGE SC SCH (10:36)
[2019-10-02] MEDS: FAMOTIDINE 20 MG TAB PO SCH (10:36)
[2019-10-02] MEDS: ASPirin-EC 81 mg tab PO SCH (10:37)
[2019-10-02] MEDS: LISINOPRIL 10 MG TAB PO SCH (10:37)
[2019-10-02] MEDS: CARVEDILOL 3.125 MG TAB PO SCH (10:37)
[2019-10-02] MEDS: POTASSIUM CHL 10 Meq TABLET PO SCH (10:38)
[2019-10-02] MEDS: DIGOXIN 0.125 MG TAB PO SCH (10:38)
[2019-10-02] MEDS: FLORASTOR (S. BOULARDII) 250 MG CAP PO SCH (10:55)
[2019-10-02] MEDS ORDERED: ASP81EC PO (12:31)
[2019-10-02] MEDS ORDERED: LISI2.5T47 PO (12:31)
[2019-10-02] MEDS ORDERED: FURO1TAB31 PO (12:31)
[2019-10-02] MEDS ORDERED: ATOR10TA PO (12:31)
[2019-10-02] MEDS ORDERED: CAR3125T PO (12:31)
[2019-10-02] MEDS ORDERED: DIGO0.1238 PO (12:31)
[2019-10-02] MEDS ORDERED: POTA1TAB61 PO (12:34)
[2019-10-02 12:44] LABS: Albumin 2.8 g/dL (3.4-5.0); Bilirubin, Direct 0.5 mg/dL (0-0.2)
[2019-10-02 12:46] LABS: Total Protein 6.7 g/dL (6.4-8.2)
[2019-10-02 13:00] VITALS: BP 124/98
[2019-10-02 14:40] VITALS: BP 129/98
[2019-10-02 17:05] VITALS: BP 123/73
== END 2019-10-02 17:43 | disposition home or self-care (01) | DRG 194 ==
LOC: ER 04:57 → TELE 04:58 → TELE-WESTW 12:06
PROVIDERS: ADMIT Nurse Practitioner Acute Care; ATTEND Internal Medicine
DX: I13.0 Hypertensive heart and chronic kidney disease with heart failure and stage 1 through stage 4 chronic kidney disease, or unspecified chronic kidney disease (principal); J96.00 Acute respiratory failure, unspecified whether with hypoxia or hypercapnia; E44.0 Moderate protein-calorie malnutrition; E87.4 Mixed disorder of acid-base balance; L03.115 Cellulitis of right lower limb; E88.09 Other disorders of plasma-protein metabolism, not elsewhere classified; L97.919 Non-pressure chronic ulcer of unspecified part of right lower leg with unspecified severity; L03.116 Cellulitis of left lower limb; I50.43 Acute on chronic combined systolic (congestive) and diastolic (congestive) heart failure; I42.8 Other cardiomyopathies; N18.3 Chronic kidney disease, stage 3 (moderate); L97.929 Non-pressure chronic ulcer of unspecified part of left lower leg with unspecified severity; R33.9 Retention of urine, unspecified; K80.20 Calculus of gallbladder without cholecystitis without obstruction; E66.9 Obesity, unspecified; F15.10 Other stimulant abuse, uncomplicated; I16.0 Hypertensive urgency; N50.89 Other specified disorders of the male genital organs; I87.2 Venous insufficiency (chronic) (peripheral); J44.9 Chronic obstructive pulmonary disease, unspecified; K27.9 Peptic ulcer, site unspecified, unspecified as acute or chronic, without hemorrhage or perforation; Z91.14 Patient's other noncompliance with medication regimen; Z83.3 Family history of diabetes mellitus; Z91.19 Patient's noncompliance with other medical treatment and regimen; Z68.31 Body mass index [BMI] 31.0-31.9, adult
CPT/HCPCS: 36415; 71045; 76705; 76775; 76870; 80048; 80053; 80076; 80162; 80307; 81001; 83605; 83735; 83880; 84443; 84484; 85025; 85610; 85730; 86704; 86706; 86708; 86803; 87040; 87340; 93005; 93970; 97116; 97163; 97530; 99291; G0378; J0696; J3490